=== PATIENT | female | born 1980 | race Caucasian/White ===

== ENCOUNTER 2019-02-25 22:48 | Inpatient (IN) | payer OTHER ==
[~2019-02-25] VITALS: Ht 165.1 cm; Wt 108.9 kg
[2019-02-25 22:50] VITALS: Ht 165.1 cm; Wt 108.9 kg
[2019-02-25 23:51] LABS: BASOPHIL % 0.5 % (0-2); PLATELET COUNT 256 x10^3mcL (130-400)
[2019-02-25 23:54] LABS: CALCIUM 7.9 mg/dL (8.5-10.1); CARBON DIOXIDE 21.6 mmol/L (21-32); CHLORIDE SERUM 104 mmol/L (98-107); GFR1 > 60 mL/min; GLUCOSE SERUM 167 mg/dL (74-106); POTASSIUM SERUM 4.4 mmol/L (3.5-5.1); RED CELL DISTRIBUTION WIDTH 17.2 % (11.5-14.5); SODIUM SERUM 134 mmol/L (136-145)
[2019-02-26] VITALS (7 sets, daily range): BP systolic 90–108; BP diastolic 63–74
[2019-02-26 00:02] LABS: ALKALINE PHOSPHATASE 87 U/L (46-116); ALT/SGPT 26 U/L (14-59); AST/SGOT 27 U/L (15-37); BILIRUBIN TOTAL 0.8 mg/dL (0.20-1.00); TOTAL PROTEIN, SERUM 7.3 g/dL (6.4-8.2)
[2019-02-26] MEDS ORDERED: LASIX40 MG PO (00:33)
[2019-02-26] MEDS ORDERED: CARVEDILOL3.125 M1 PO (00:33)
[2019-02-26] MEDS ORDERED: ALDACTONE50 MG PO (00:34)
[2019-02-26] MEDS ORDERED: GOOD SENSE ASPI81 M3 PO (00:35)
[2019-02-26] MEDS ORDERED: ZOF4 PO (00:35)
[2019-02-26] MEDS ORDERED: LEVOTHYROXINE0.05 M2 PO (00:35)
[2019-02-26] MEDS ORDERED: LANTI SQ (00:36)
[2019-02-26] MEDS ORDERED: NOVOLOG100 U/ML SC (00:38)
[2019-02-26 01:16] LABS: MAGNESIUM 2.3 mg/dL (1.8-2.4); PHOSPHOROUS 4.3 mg/dL (2.5-4.9)
[2019-02-26 01:23] LABS: FREE T4 0.85 ng/dL (0.76-1.46); FREE THYROXINE INDEX 2.1 ug/dL (1.4-4.5); T4(THYROXINE) 6.1 ug/dL (4.7-13.3)
[2019-02-26 01:46] LABS: CHOLESTEROL/HDL RATIO 4.9
[2019-02-26 02:39] LABS: T3 TOTAL 0.98 ng/mL
[2019-02-26 06:24] LABS: BASOPHIL % 0.3 % (0-2); PLATELET COUNT 222 x10^3mcL (130-400)
[2019-02-26 06:34] LABS: RED CELL DISTRIBUTION WIDTH 17.1 % (11.5-14.5)
[2019-02-26 06:38] LABS: CALCIUM 7.9 mg/dL (8.5-10.1); CARBON DIOXIDE 23.5 mmol/L (21-32); CHLORIDE SERUM 105 mmol/L (98-107); CREATININE SERUM 0.9 mg/dL (0.6-1.0); GFR1 > 60 mL/min; GLUCOSE SERUM 176 mg/dL (74-106); MAGNESIUM 2.1 mg/dL (1.8-2.4); PHOSPHOROUS 3.4 mg/dL (2.5-4.9); POTASSIUM SERUM 4.3 mmol/L (3.5-5.1); SODIUM SERUM 138 mmol/L (136-145)
[2019-02-26 09:08] LABS: microscopic required? NO
[2019-02-26 09:27] LABS: UA SPECIFIC GRAVITY >=1.030 (1.005-1.035); urine erythrocyte NEGATIVE (NEGATIVE)
[2019-02-26 09:57] LABS: AMPHETAMINE QUAL UR POSITIVE (See below)
[2019-02-27 05:19] VITALS: BP 100/72
[2019-02-27 06:15] LABS: BASOPHIL % 0.3 % (0-2); PLATELET COUNT 267 x10^3mcL (130-400)
[2019-02-27 06:24] LABS: CALCIUM 8.1 mg/dL (8.5-10.1); CARBON DIOXIDE 29.6 mmol/L (21-32); CHLORIDE SERUM 104 mmol/L (98-107); GFR1 > 60 mL/min; GLUCOSE SERUM 87 mg/dL (74-106); MAGNESIUM 2.2 mg/dL (1.8-2.4); PHOSPHOROUS 3.7 mg/dL (2.5-4.9); POTASSIUM SERUM 3.6 mmol/L (3.5-5.1); SODIUM SERUM 140 mmol/L (136-145)
[2019-02-27 07:44] LABS: RED CELL DISTRIBUTION WIDTH 17.2 % (11.5-14.5)
[2019-02-27 09:03] VITALS: BP 100/80
[2019-02-27 13:52] VITALS: BP 108/72
[2019-02-27 17:42] VITALS: BP 104/74
[2019-02-27 20:40] VITALS: BP 99/67
[2019-02-28 05:29] VITALS: BP 101/72
[2019-02-28 07:19] LABS: BASOPHIL % 0.5 % (0-2); PLATELET COUNT 260 x10^3mcL (130-400)
[2019-02-28 07:31] LABS: CALCIUM 8.2 mg/dL (8.5-10.1); CARBON DIOXIDE 27.7 mmol/L (21-32); CREATININE SERUM 1.1 mg/dL (0.6-1.0)
[2019-02-28 08:05] VITALS: BP 118/76
[2019-02-28 08:08] LABS: RED CELL DISTRIBUTION WIDTH 17.7 % (11.5-14.5)
[2019-02-28 12:32] VITALS: BP 110/61
[2019-02-28 16:11] VITALS: BP 103/60
[2019-02-28 20:23] VITALS: BP 90/40
[2019-03-01 05:35] VITALS: BP 101/68
[2019-03-01 09:17] VITALS: BP 103/68
[2019-03-01] MEDS ORDERED: ZES5 PO (09:50)
[2019-03-01] MEDS ORDERED: LIPI20 PO (09:50)
[2019-03-01 10:41] VITALS: BP 103/68
== END 2019-03-01 12:30 | disposition home or self-care (01) | DRG 194 ==
LOC: ED 22:48 → DU 02-26 00:25
PROVIDERS: ADMIT Family Medicine
DX: I11.0 Hypertensive heart disease with heart failure (principal); N17.0 Acute kidney failure with tubular necrosis; E44.0 Moderate protein-calorie malnutrition; E11.65 Type 2 diabetes mellitus with hyperglycemia; D68.59 Other primary thrombophilia; E83.51 Hypocalcemia; E66.9 Obesity, unspecified; I42.9 Cardiomyopathy, unspecified; F15.10 Other stimulant abuse, uncomplicated; I50.23 Acute on chronic systolic (congestive) heart failure; E87.1 Hypo-osmolality and hyponatremia; E03.9 Hypothyroidism, unspecified; Z79.4 Long term (current) use of insulin; Z79.82 Long term (current) use of aspirin; Z79.899 Other long term (current) drug therapy; Z87.891 Personal history of nicotine dependence; Z68.39 Body mass index [BMI] 39.0-39.9, adult
CPT/HCPCS: 82962; 83880; 84439; 87804; G0378; J1885; J1940; J2270; J2405; J7040; J8597; Q0092

== ENCOUNTER 2019-04-04 21:21 | Inpatient (IN) | payer OTHER ==
[~2019-04-04] VITALS: Ht 165.1 cm; Wt 107.0 kg
[~2019-04-04 21:21] MED LIST: ALDACTONE50 MG PO; CARVEDILOL3.125 M1 PO; GOOD SENSE ASPI81 M3 PO; LANTI SQ; LASIX40 MG PO; LEVOTHYROXINE0.05 M2 PO; LIPI20 PO; NOVOLOG100 U/ML SC; ZES5 PO; ZOF4 PO
[2019-04-04 21:25] VITALS: Ht 165.1 cm; Wt 107.0 kg
[2019-04-04 21:58] LABS: BASOPHIL % 0.4 % (0-2); PLATELET COUNT 246 x10^3mcL (130-400)
[2019-04-04 21:59] LABS: RED CELL DISTRIBUTION WIDTH 17.1 % (11.5-14.5)
[2019-04-04 22:42] LABS: CALCIUM 8.1 mg/dL (8.5-10.1); CARBON DIOXIDE 24.7 mmol/L (21-32); CHLORIDE SERUM 105 mmol/L (98-107); GFR1 > 60 mL/min; GLUCOSE SERUM 170 mg/dL (74-106); POTASSIUM SERUM 4.1 mmol/L (3.5-5.1); SODIUM SERUM 138 mmol/L (136-145)
[2019-04-04 22:46] LABS: ALKALINE PHOSPHATASE 92 U/L (46-116); ALT/SGPT 26 U/L (14-59); AST/SGOT 22 U/L (15-37); BILIRUBIN TOTAL 0.6 mg/dL (0.20-1.00); TOTAL PROTEIN, SERUM 7.1 g/dL (6.4-8.2)
[2019-04-04 23:59] LABS: MAGNESIUM 2.2 mg/dL (1.8-2.4); PHOSPHOROUS 3.7 mg/dL (2.5-4.9)
[2019-04-05 00:03] LABS: T3 TOTAL 1.1 ng/mL
[2019-04-05 00:12] LABS: FREE T4 1.23 ng/dL (0.76-1.46); FREE THYROXINE INDEX 3.1 ug/dL (1.4-4.5); T4(THYROXINE) 9.4 ug/dL (4.7-13.3)
[2019-04-05 01:27] VITALS: BP 110/70
[2019-04-05 05:35] VITALS: BP 117/86
[2019-04-05 06:06] LABS: BASOPHIL % 0.5 % (0-2); PLATELET COUNT 233 x10^3mcL (130-400)
[2019-04-05 06:39] LABS: CALCIUM 7.8 mg/dL (8.5-10.1); CARBON DIOXIDE 24.9 mmol/L (21-32); CHLORIDE SERUM 105 mmol/L (98-107); GFR1 > 60 mL/min; GLUCOSE SERUM 115 mg/dL (74-106); MAGNESIUM 1.7 mg/dL (1.8-2.4); PHOSPHOROUS 3.4 mg/dL (2.5-4.9); POTASSIUM SERUM 3.4 mmol/L (3.5-5.1); SODIUM SERUM 140 mmol/L (136-145)
[2019-04-05 08:45] VITALS: BP 132/54
[2019-04-05 12:44] VITALS: BP 133/49
[2019-04-05 16:03] LABS: microscopic required? YES; urine erythrocyte 2+ (NEGATIVE)
[2019-04-05 16:13] LABS: AMPHETAMINE QUAL UR NONE DETECTED (See below)
[2019-04-05 17:33] VITALS: BP 94/55
[2019-04-05 20:00] VITALS: BP 100/53
[2019-04-06 05:36] VITALS: BP 100/65
[2019-04-06 06:52] LABS: BASOPHIL % 0.5 % (0-2); PLATELET COUNT 206 x10^3mcL (130-400)
[2019-04-06 07:03] LABS: CALCIUM 7.8 mg/dL (8.5-10.1); CARBON DIOXIDE 26.6 mmol/L (21-32); CREATININE SERUM 1.1 mg/dL (0.6-1.0); POTASSIUM SERUM 3.5 mmol/L (3.5-5.1)
[2019-04-06 07:13] LABS: RED CELL DISTRIBUTION WIDTH 17.9 % (11.5-14.5)
[2019-04-06 08:19] VITALS: BP 96/74
[2019-04-06 12:04] VITALS: BP 108/74
[2019-04-06 16:39] VITALS: BP 98/70
[2019-04-06 20:52] VITALS: BP 91/61
[2019-04-06 21:40] VITALS: BP 102/64
[2019-04-07 05:33] VITALS: BP 96/58
[2019-04-07 06:35] LABS: BASOPHIL % 0.4 % (0-2); PLATELET COUNT 219 x10^3mcL (130-400)
[2019-04-07 06:51] LABS: RED CELL DISTRIBUTION WIDTH 17.3 % (11.5-14.5)
[2019-04-07 06:58] LABS: CALCIUM 8.1 mg/dL (8.5-10.1); CARBON DIOXIDE 27.7 mmol/L (21-32); CREATININE SERUM 1.1 mg/dL (0.6-1.0); POTASSIUM SERUM 3.8 mmol/L (3.5-5.1)
[2019-04-07 08:00] VITALS: BP 98/68
[2019-04-07 11:31] VITALS: BP 98/68
[2019-04-07 12:42] VITALS: BP 105/77
== END 2019-04-07 14:41 | disposition home or self-care (01) | DRG 194 ==
LOC: ED 21:21 → DU 23:23
PROVIDERS: Emergency Medicine; ADMIT Student in an Organized Health Care Education/Training Program
DX: I11.0 Hypertensive heart disease with heart failure (principal); E43 Unspecified severe protein-calorie malnutrition; I42.8 Other cardiomyopathies; I50.23 Acute on chronic systolic (congestive) heart failure; Z68.41 Body mass index [BMI] 40.0-44.9, adult; F15.21 Other stimulant dependence, in remission; E11.65 Type 2 diabetes mellitus with hyperglycemia; E83.51 Hypocalcemia; D64.9 Anemia, unspecified; J45.909 Unspecified asthma, uncomplicated; E03.9 Hypothyroidism, unspecified; Z79.82 Long term (current) use of aspirin; Z79.4 Long term (current) use of insulin; Z87.891 Personal history of nicotine dependence; Z79.84 Long term (current) use of oral hypoglycemic drugs; Z79.899 Other long term (current) drug therapy
CPT/HCPCS: 82962; 83880; 84439; 97116-GP; C9113; G0378; J1200; J1885; J1940; J2060; J2405; J2765; J3490; Q0092